=== PATIENT | female | born 1945 | race Caucasian/White ===

== ENCOUNTER 2020-07-30 04:07 | Day surgery (SDC) | payer OTHER, MEDICARE ==
[2020-07-24 13:21] VITALS: BMI 19.9
[~2020-07-30 04:07] MED LIST: BSS (NA/CA/MG/K) BALANCED SALT SOLUTION OPHTH SOLN 15 ML BOTTLE OS ONE; CHONDROITIN SU A/HYALUR SOD 1 KIT IO ONE; EPINEPHrine/PF 1 MG/1 ML (1:1,000) AMPULE SQ ONE; LIDOCAINE HCL 1% PRESERVATIVE FREE - 30ML VIAL NR ONE; POVIDONE-IODINE 5% OPHTHALMIC PREP 30 ML SOLUTION OS ONE; TETRACAINE 0.5% HCL 0.6ML DROPPER.BOTTLE OS ONE; TOBRAMYCIN/DEXAMETHASONE OPHTH. OINTMENT 1 TUBE OS ONE
[2020-07-30] MEDS ORDERED: ACETAMINOPHEN 325 MG TABLET (FP) PO PRN (07:24)
[2020-07-30] MEDS ORDERED: CIPROFLOXACIN HCL 0.3% OPHTH 2.5ML BOTTLE ONE (08:08)
[2020-07-30] MEDS ORDERED: TROPICAMIDE 1% OPHTH SOLN 15 ML BOTTLE ONE (08:08)
[2020-07-30] MEDS ORDERED: KETOROLAC TROMETHAMINE 0.5% EYE DROP 1 DROP DROPS ONE (08:09)
[2020-07-30] MEDS: PHENYLEPHRINE 2.5% OPHTH SOLN 15 ML BOTTLE OP SCH ×3 (08:15→08:43)
[2020-07-30] MEDS: KETOROLAC TROMETHAMINE 0.5% EYE DROP 1 DROP DROPS OP SCH ×3 (08:15→08:43)
[2020-07-30] MEDS: TROPICAMIDE 1% OPHTH SOLN 15 ML BOTTLE OP SCH ×3 (08:15→08:43)
[2020-07-30] MEDS: CIPROFLOXACIN HCL 0.3% OPHTH 2.5ML BOTTLE OP SCH ×3 (08:15→08:42)
[2020-07-30] MEDS ORDERED: TETRACAINE 0.5% OPHTH SOLN 2 ML BOTTLE TP ONE (09:54)
[2020-07-30] MEDS ORDERED: TETRACAINE 0.5% HCL 0.6ML DROPPER.BOTTLE OS ONE (09:54)
[2020-07-30] MEDS ORDERED: POVIDONE-IODINE 5% OPHTHALMIC PREP 30 ML SOLUTION OS ONE (09:58)
[2020-07-30] MEDS ORDERED: BSS (NA/CA/MG/K) BALANCED SALT SOLUTION OPHTH SOLN 15 ML BOTTLE OS ONE (10:03)
[2020-07-30] MEDS ORDERED: LIDOCAINE HCL 1% PRESERVATIVE FREE - 30ML VIAL NR ONE ×2 (10:04)
[2020-07-30] MEDS ORDERED: CHONDROITIN SU A/HYALUR SOD 1 KIT IO ONE (10:08)
[2020-07-30] MEDS ORDERED: EPINEPHrine/PF 1 MG/1 ML (1:1,000) AMPULE SQ ONE (10:12)
[2020-07-30] MEDS ORDERED: TOBRAMYCIN/DEXAMETHASONE OPHTH. OINTMENT 1 TUBE OS ONE (10:26)
[2020-07-30] MEDS ORDERED: ONDANSETRON 4 MG/2 ML VIAL IVPUSH PRN (11:41)
[2020-07-30 11:42] VITALS: BP 129/77; PULSE 72; TEMP 97.9
[2020-07-30] MEDS ORDERED: LACTATED RINGERS SOLUTION 1,000 ML IV SCH (11:45)
== END 2020-07-30 11:30 | disposition home or self-care (01) ==
LOC: JASU-SURG 04:07
PROVIDERS: ATTEND Ophthalmology
PROC: 08RK3JZ Replacement of Left Lens with Synthetic Substitute, Percutaneous Approach (ICD-10-PCS; principal; 2020-07-30 09:30)
DX: H25.12 Age-related nuclear cataract, left eye (principal)

== ENCOUNTER 2022-12-22 11:43 | Inpatient (IN) | payer OTHER, MEDICARE ==
[2022-12-22 13:51] LABS: BASO % 0.8 % (0-2.0); EOS % 0.9 % (0-4.5); HEMATOCRIT 29.9 % (32.4-45.2); HEMOGLOBIN 9.6 GM/dL (10.7-15.3); LYMPH % 14.4 % (8-40); MCHC 31.9 g/dl (32.0-36.0); MEAN CELL VOLUME 90.9 fl (80-96); MEAN PLT VOLUME 5.9 fl (7.5-11.1); MONO % 12.3 % (3.8-10.2); NEUT % 71.6 % (42.8-82.8); PLATELET COUNT 583 10^3/uL (134-434); RBC 3.29 M/mm3 (3.60-5.2); RDW 15.6 % (11.6-15.6); WHITE BLOOD COUNT 10.4 K/mm3 (4.0-10.0)
[2022-12-22 14:04] LABS: INR 1.07 (0.83-1.09); PROTHROMBIN TIME (PATIENT) 12.4 SEC (9.7-13.0)
[2022-12-22 14:23] LABS: POTASSIUM 4.7 mmol/L (3.5-5.1)
[2022-12-22 14:25] LABS: ALBUMIN 3.2 g/dl (3.4-5.0); CALCIUM 9.7 mg/dL (8.5-10.1)
[2022-12-22 14:26] LABS: BLOOD UREA NITROGEN 15.6 mg/dL (7-18)
[2022-12-22 14:29] LABS: CREATININE 0.6 mg/dL (0.55-1.3)
[2022-12-22 14:31] LABS: BILIRUBIN,TOTAL 0.2 mg/dL (0.2-1); TOT PROT 8.1 g/dl (6.4-8.2)
[2022-12-22] MEDS ORDERED: D5-1/2NS+20 MEQ KCL - 20 MEQ/1,000 ML INFUS.BAG IV SCH (16:45)
[2022-12-22] MEDS: HEPARIN NA (PORCINE) 5,000 UNITS/ML 1ML VIAL SQ SCH (21:56)
[2022-12-22] MEDS: PANTOPRAZOLE 20 MG TABLET PO SCH (21:56)
[2022-12-22] MEDS ORDERED: PATIENT'S OWN MEDICATION (NON-FORMULARY) (Omeprazole 20 MG Capsule.Dr) PO SCH (22:00)
[2022-12-22 22:47] VITALS: BMI 19.1
[2022-12-23] MEDS: HEPARIN NA (PORCINE) 5,000 UNITS/ML 1ML VIAL SQ SCH (06:31)
[2022-12-23] MEDS ORDERED: LEVOTHYROXINE NA 125 MCG TABLET (FP) PO SCH (07:00)
[2022-12-23 08:52] VITALS: BP 114/58; PULSE 83; RESP 18; TEMP 97.8
[2022-12-23] MEDS ORDERED: PARoxetine HCL 10 MG TABLET ONE ×2 (09:29)
[2022-12-23] MEDS: PANTOPRAZOLE 20 MG TABLET PO SCH (09:40)
[2022-12-23 09:53] LABS: BASO % 0.6 % (0-2.0); EOS % 1.1 % (0-4.5); HEMOGLOBIN 9.4 GM/dL (10.7-15.3); LYMPH % 9.3 % (8-40); MCH 30.2 pg (25.7-33.7); MCHC 33.5 g/dl (32.0-36.0); MEAN PLT VOLUME 6.1 fl (7.5-11.1); PLATELET COUNT 536 10^3/uL (134-434); RBC 3.11 M/mm3 (3.60-5.2); RDW 15.6 % (11.6-15.6); WHITE BLOOD COUNT 9.7 K/mm3 (4.0-10.0)
[2022-12-23] MEDS ORDERED: PARoxetine HCL 30 MG TABLET PO SCH (10:00)
[2022-12-23 10:01] LABS: POTASSIUM 4.4 mmol/L (3.5-5.1)
[2022-12-23 10:08] LABS: CALCIUM 9.1 mg/dL (8.5-10.1)
[2022-12-23 10:09] LABS: ALBUMIN 2.9 g/dl (3.4-5.0); BLOOD UREA NITROGEN 15.5 mg/dL (7-18)
[2022-12-23 10:12] LABS: CREATININE 0.5 mg/dL (0.55-1.3)
[2022-12-23 10:13] LABS: BILIRUBIN,TOTAL 0.2 mg/dL (0.2-1); TOT PROT 7.6 g/dl (6.4-8.2)
== END 2022-12-23 14:07 | disposition short-term general hospital (02) | DRG 181 ==
LOC: JER 11:43 → JERBED 16:02 → J7W 20:26
PROVIDERS: ADMIT Family Medicine; ATTEND Family Medicine
DX: D49.1 Neoplasm of unspecified behavior of respiratory system (principal); E22.2 Syndrome of inappropriate secretion of antidiuretic hormone; R04.2 Hemoptysis; I87.1 Compression of vein; I10 Essential (primary) hypertension; K21.9 Gastro-esophageal reflux disease without esophagitis; R59.0 Localized enlarged lymph nodes; E03.9 Hypothyroidism, unspecified; Z87.891 Personal history of nicotine dependence
CPT/HCPCS: 36415; 70491-TC; 71045-TC-FY; 71260-TC; 80053; 84443; 84484; 85025; 85610; 86850; 86900; 86901; 93005; 93010; 99285-25; J1644; Q9967